=== PATIENT | female | born 1955 | race Caucasian/White ===

== ENCOUNTER 2020-12-05 09:46 | Outpatient (CLI) | payer MEDICARE, MEDICAID, OTHER | END 2020-12-05 09:47 | disposition home or self-care (01) | LOC: CSHMAMMO 09:46 | PROVIDERS: ATTEND Family Medicine | DX: Z12.31 Encounter for screening mammogram for malignant neoplasm of breast (principal) | CPT/HCPCS: 77063; 77067 ==

== ENCOUNTER 2021-03-20 13:26 | Outpatient (CLI) | payer MEDICARE, MEDICAID | END 2021-03-20 13:27 | disposition home or self-care (01) | LOC: CSHMRI 13:26 | PROVIDERS: ATTEND Psychiatry & Neurology Neurology | DX: R41.3 Other amnesia (principal); R41.840 Attention and concentration deficit | CPT/HCPCS: 70553 ==

== ENCOUNTER 2021-12-07 08:46 | Outpatient (CLI) | payer MEDICARE, MEDICAID | END 2021-12-07 08:47 | disposition home or self-care (01) | LOC: CSHMAMMO 08:46 | PROVIDERS: ATTEND Family Medicine | DX: Z12.31 Encounter for screening mammogram for malignant neoplasm of breast (principal); Z80.3 Family history of malignant neoplasm of breast | CPT/HCPCS: 77063; 77067 ==

== ENCOUNTER 2022-12-24 11:17 | Outpatient (CLI) | payer OTHER | END 2022-12-24 11:18 | disposition home or self-care (01) | LOC: CSHMAMMO 11:17 | PROVIDERS: ATTEND Family Medicine | DX: Z12.31 Encounter for screening mammogram for malignant neoplasm of breast (principal); Z80.3 Family history of malignant neoplasm of breast | CPT/HCPCS: 77063; 77067 ==